=== PATIENT | female | born 1965 | race Caucasian/White ===

== ENCOUNTER 2017-03-02 19:34 | Emergency (ER) | payer MEDICAID ==
[~2017-03-02] VITALS: Ht 149.9 cm; Wt 67.1 kg
[~2017-03-02 19:34] MED LIST: CARV12.5 PO; LOVA20TA PO; TYLE3 PO; ZOLO20CO PO
[2017-03-02 19:45] VITALS: BP 129/77; PULSE 97; RESP 16; TEMP 98.4; O2SAT 97
[2017-03-02] MEDS ORDERED: CARV12.52 PO (19:59)
[2017-03-02] MEDS ORDERED: LOVA40TA PO (19:59)
[2017-03-02] MEDS ORDERED: SERT25TA83 PO (19:59)
[2017-03-02] MEDS ORDERED: VESI5TAB2 PO (19:59)
--- NOTE | 2017-03-02 20:04 | PD ---
HPI Chief Complaint: Complaint Time Seen by Provider: 19:55 Travel History International Travel<30 days: No Contact w/Intl Traveler<30days: No Traveled to known affect area: No History of Present Illness HPI 51-year-old female presents for evaluation. For the past few days she's had cough and congestion. Since yesterday she has had increased urinary frequency, crampy suprapubic and lower back discomfort which is constant. She denies dysuria, urinary hesitancy, fevers or chills, flank pain, nausea or vomiting, diarrhea or constipation, vaginal bleeding or discharge. History of appendectomy. No other complaints. PFSH Past Medical History Asthma: Yes Blood Disorders: No Anxiety: Yes Depression: No Cancer: No Cardiovascular Problems: Yes High Cholesterol: Yes Diminished Hearing: No Endocrine: No Genitourinary: No Hypertension: Yes Immune Disorder: No Musculoskeletal: Yes (BACK PROBLEMS) Neurologic: Yes (HERNIATED DISCS) Psychiatric: Yes Reproductive: No Respiratory: Yes Immunizations Current: No ?: Not Menopausal: Yes : 4 Para: 4 Past Surgical History Abdominal Surgery: Yes (APPY) Appendectomy: Yes Section: Yes Gynecologic Surgery: Yes (C SECTION) Other Surgery: Yes Social History Alcohol Use: No Tobacco Use: Yes (ONE PPD ) Substance Use: No Allergies-Medications (Allergen,Severity, Reaction): Coded Allergies: penicillin G (Verified Allergy, Severe, HIVES, 03/02/17) Reported Meds & Prescriptions Reported Meds & Active Scripts Active Ibuprofen 600 Mg Tab 600 Mg PO Q6H PRN Tessalon Perles (Benzonatate) 100 Mg Cap 200 Mg PO TID PRN Macrobid (Nitrofurantoin Monoh/Nitrofur Macro) 100 Mg Cap 100 Mg PO BID 7 Days Reported Sertraline (Sertraline HCl) 25 Mg Tab 25 Mg PO DAILY Lovastatin 40 Mg Tab 40 Mg PO DAILY Vesicare (Solifenacin) 5 Mg Tab 5 Mg PO DAILY Carvedilol 12.5 Mg Tab 12.5 Mg PO BID Review of Systems Except as stated in HPI: all other systems reviewed are Neg Physical Exam Narrative GENERAL: Well-developed well-nourished female in no acute distress SKIN: Warm and dry. HEAD: Atraumatic. Normocephalic. EYES: Pupils equal and round. No scleral icterus. No injection or drainage. ENT: No nasal bleeding or discharge. Mucous membranes pink and moist. NECK: Trachea midline. No JVD. CARDIOVASCULAR: Regular rate and rhythm. No murmur appreciated. RESPIRATORY: No accessory muscle use. Clear to auscultation. Breath sounds equal bilaterally. GASTROINTESTINAL: Abdomen soft, non-tender, nondistended. Hepatic and splenic margins not palpable. No CVA tenderness MUSCULOSKELETAL: No obvious deformities. No clubbing. No cyanosis. No edema. NEUROLOGICAL: Awake and alert. No obvious cranial nerve deficits. Motor grossly within normal limits. Normal speech. PSYCHIATRIC: Appropriate mood and affect; insight and judgment normal. Data Data Last Documented VS Vital Signs Date Time Temp Pulse Resp B/P (MAP) Pulse Ox O2 Delivery O2 Flow Rate FiO2 03/02/17 19:45 98.4 97 16 129/77 (94) 97 Orders Orders Urinalysis - C+S If Indicated (03/02/17 19:52) Urine Culture (03/02/17 20:00) Ed Discharge Order (03/02/17 20:39) Labs Laboratory Tests Test 03/02/17 20:00 Urine Color YELLOW Urine Turbidity CLEAR Urine pH 6.5 Urine Specific [place] 1.010 Urine Protein NEG mg/dL Urine Glucose (UA) NEG mg/dL Urine Ketones NEG mg/dL Urine Occult Blood LARGE Urine Nitrite NEG Urine Bilirubin NEG Urine Leukocyte Esterase SMALL Urine RBC 10-14 /hpf Urine WBC 15-19 /hpf Urine WBC Clumps MOD Urine Squamous Epithelial Cells 0-5 /hpf Urine Bacteria FEW /hpf Microscopic Urinalysis Comment CULTURE INDICATED MDM Medical Decision Making Medical Screen Exam Complete: Yes Emergency Medical Condition: Yes Medical Record Reviewed: Yes Differential Diagnosis Cystitis, ovarian torsion, colitis, diverticulitis Narrative Course Her examination is benign. Her abdomen is soft and nontender. Her urinalysis and symptoms are consistent with urinary tract infection. She also appears to have a viral upper respiratory infection. Pending urine culture results she is being discharged with Macrobid as well as ibuprofen at her request, Gissell for cough. Diagnosis Primary Impression: Urinary tract infection Additional Impression: Upper respiratory infection Patient Instructions: General Instructions Departure Forms: Tests/Procedures Additional Instructions: Medication as prescribed. Follow-up with primary care. Return for any emergent medical conditions. Med/Other Pt SpecificInfo: Prescription(s) given Scripts Ibuprofen (Ibuprofen) 600 Mg Tab 600 MG PO Q6H Y for Pain/Inflammation, #40 TAB 0 Refills Prov: Thomas Calderón MD 03/02/17 Benzonatate (Tessalon Perles) 100 Mg Cap 200 MG PO TID Y for COUGH, #30 CAP 0 Refills Prov: Thomas Calderón MD 03/02/17 Nitrofurantoin Monohydrate Macrocrystals (Macrobid) 100 Mg Cap 100 MG PO BID for Infection for 7 Days, #14 CAP 0 Refills Prov: Thomas Calderón MD 03/02/17 Disposition: 01 DISCHARGE HOME Condition: Stable Jerome Valdovinos Mar 02, 2017 20:04
[2017-03-02 20:07] LABS: BLOOD, URINE LARGE (NEG); GLUCOSE,URINE NEG (NEG); KETONE, URINE NEG (NEG); NITRITE,URINE NEG (NEG); PH, URINE 6.5 (5.0-8.5)
[2017-03-02 20:11] LABS: URINE COLOR YELLOW (YELLW/STRAW)
[2017-03-02 20:14] LABS: BACTERIA, URINE FEW /hpf; COMMENT (UR) CULTURE INDICATED; CULTURE IF INDICATED CULTURE INDICATED; SQUAMOUS EPITHELIAL CELL URINE 0-5 /hpf (0-5); WBC, URINE 15-19 /hpf (0-5)
[2017-03-02] MEDS ORDERED: MACR100C2 PO (20:30)
[2017-03-02] MEDS ORDERED: BENZ100 PO (20:38)
[2017-03-02] MEDS ORDERED: IBUP-232 PO (20:39)
== END 2017-03-02 20:48 | disposition home or self-care (01) ==
LOC: PHEFT 19:34
DX: N39.0 Urinary tract infection, site not specified (principal); J06.9 Acute upper respiratory infection, unspecified; B96.20 Unspecified Escherichia coli [E. coli] as the cause of diseases classified elsewhere
CPT/HCPCS: 81001; 87077; 87086; 87186; 99284